=== PATIENT | male | born 1985 | race Caucasian/White ===

== ENCOUNTER 2024-05-11 07:57 | Emergency (ER) | payer OTHER ==
[~2024-05-11] VITALS: Ht 188 cm; Wt 86.2 kg
[2024-05-11 08:39] VITALS: BP 141/106
[2024-05-11] MEDS ORDERED: GABA300 PO ×2 (10:29→10:33)
[2024-05-11] MEDS ORDERED: Robaxin750 MG PO (10:29)
[2024-05-11] MEDS ORDERED: HYDROCODONE-AC1 EA10 PO (10:29)
[2024-05-11] MEDS ORDERED: HYDR1TAB94 PO (10:33)
== END 2024-05-11 10:50 | disposition home or self-care (01) ==
LOC: ER 07:57
DX: M54.12 Radiculopathy, cervical region (principal); F17.290 Nicotine dependence, other tobacco product, uncomplicated; Z79.899 Other long term (current) drug therapy
CPT/HCPCS: 99282